=== PATIENT | male | born 1975 | race African-American/Black ===

== ENCOUNTER 2019-05-09 06:38 | Emergency (ER) | payer SELFPAY ==
[2019-05-09 07:27] LABS: Urine Blood 2+ (NEG); Urine Glucose NEGATIVE (NEG); Urine Protein 1+ (NEG); Urine Specific Gravity 1.025 (1.005-1.030)
[2019-05-09 07:34] LABS: Urine Bacteria <20 /HPF (NONE SEEN); Urine Culture Reflex Order REFLEXED; Urine Mucus HEAVY /HPF (NONE SEEN); Urine RBC <5 /HPF (NONE SEEN)
--- NOTE | 2019-05-09 08:00 | RAD REPORT ---
EXAM DESCRIPTION: CT - Stone Protocol - 05/09/2019 7:49 am CLINICAL HISTORY: Abdominal pain, right flank pain COMPARISON: None. TECHNIQUE: Axial 5 mm thick images were obtained without oral or IV contrast. The [id number]-bn-spos span s the entirety of the system including uppermost abdomen and lung bases. All CT scans are performed using dose optimization technique as appropriate and may include automated exposure control or mA/KV adjustment according to patient size. FINDINGS: No hydronephrosis is present and no obstructing ureteral calculi. Iliac artery calcificati ons are identified in phleboliths are present in the lower pelvis. No suspicious renal masses. Isoden se masses and pyelonephritis are not excluded on a stone protocol CT scan. No calculus in the contrac niya urinary bladder. No significant adrenal finding. Imaged portions of the liver, spleen and pancreas show no suspicious findings on non-contrast imaging . No gallbladder or biliary tree abnormality identified. Gallstones can be occult on CT imaging. No s uspicion for an active gallbladder process. No suspicious bowel findings. No direct or indirect evidence for appendicitis. No hernia, mass or bulky lymphadenopathy noted. Trace amount of free fluid in the dependent portion t he pelvis likely reactive. No free air or pneumatosis. No significant bony abnormality. IMPRESSION: No hydronephrosis, obstructing calculus or acute finding. Isodense masses and pyelonephritis are not excluded on stone protocol technique. No direct or indirect evidence for appendicitis or other acute GI process. Trace free fluid in the de pendent portion of the pelvis is likely reactive.
[2019-05-09 08:24] LABS: Absolute Lymphocytes (CBC) 1.6 K/uL (0.7-4.9); Basophils % 0.8 % (0-1.3); Eosinophils % 0.4 % (0-4.4); Hematocrit 50.2 % (39.6-49.0); Lymphocytes % 30.3 % (15.3-44.8); MPV 8.6 fL (7.6-11.3); Monocytes % 8.5 % (3.3-12.3); RBC Red Blood Cell Count 5.31 M/uL (4.33-5.43)
[2019-05-09 08:49] LABS: Blood Morphology Comment NOT SEEN (NOT SEEN); Platelet Estimate ADEQ; Urine White Blood Cell Casts OK
[2019-05-09 09:02] LABS: BUN Blood Urea Nitrogen 10 mg/dL (7-18); Bicarbonate 25 mmol/L (21-32); Glucose Level 91 mg/dL (74-106); Potassium 4.7 mmol/L (3.5-5.1); Sodium Level 134 mmol/L (136-145)
--- NOTE | 2019-05-09 09:31 | ER ---
Nurse's Notes [facility] Name: Benny Morris III Age: 43 yrs Sex: Male : 1975 Arrival Date: 05/09/2019 Time: 06:39 Bed 5 Private MD: Diagnosis: Abdominal and pelvic pain Presentation: 05/09 06:50 Presenting complaint: Patient states: Right flank pain that radiates to RLQ x 4 days. tl2 Denies any urinary symptoms. Reports N/V. Transition of care: patient was not received from another setting of care. Onset of symptoms was May 05, 2019. Risk Assessment: Do you want to hurt yourself or someone else? Patient reports no desire to harm self or others. Initial Sepsis Screen: Does the patient meet any 2 criteria? No. Patient's initial sepsis screen is negative. Does the patient have a suspected source of infection? No. Patient's initial sepsis screen is negative. Care prior to arrival: None. 06:50 Method Of Arrival: Ambulatory tl2 06:50 Acuity: JOSUÉ 3 tl2 Triage Assessment: 06:51 General: Appears in no apparent distress. uncomfortable, Behavior is calm, cooperative, tl2 appropriate for age. Pain: Complains of pain in right flank Pain radiates to right lower quadrant Pain currently is 10 out of 10 on a pain scale. Neuro: Level of Consciousness is awake, alert, obeys commands, Oriented to person, place, time, situation. Respiratory: Airway is patent Respiratory effort is even, unlabored, Respiratory pattern is regular, symmetrical. GI: Reports nausea, vomiting. : Denies burning with urination, inability to void, urinary frequency. Derm: Skin is pink, warm \T\ dry. Historical: - Allergies: 06:51 No Known Allergies; tl2 - Home Meds: 06:51 None [Active]; tl2 - PMHx: 06:51 None; tl2 - PSHx: 06:51 None; tl2 - Immunization history:: Adult Immunizations up to date. - Social history:: Smoking status: Patient uses tobacco products, cigars. - Ebola Screening: : No symptoms or risks identified at this time. Screenin:52 Abuse screen: Denies threats or abuse. Nutritional screening: No deficits noted. tl2 Tuberculosis screening: No symptoms or risk factors identified. Fall Risk None identified. Assessment: 07:20 General: Appears in no apparent distress. well groomed, well developed, well nourished, sg Behavior is calm, cooperative, appropriate for age. Pain: Complains of pain in right low back and right lower quadrant Quality of pain is described as aching. Neuro: No deficits noted. Cardiovascular: Capillary refill is brisk in bilateral fingers Patient's skin is warm and dry. Chest pain is denied. Respiratory: Airway is patent Respiratory effort is even, unlabored, Respiratory pattern is regular, symmetrical. GI: No signs and/or symptoms were reported involving the gastrointestinal system. : No signs and/or symptoms were reported regarding the genitourinary system. EENT: No signs and/or symptoms were reported regarding the EENT system. Derm: Skin is pink, warm \T\ dry. Musculoskeletal: No signs and/or symptoms reported regarding the musculoskeletal system. Vital Signs: 06:51 BP 123 / 85; Pulse 52; Resp 18; Temp 98.8(O); Pulse Ox 97% on R/A; Weight 64.2 kg; tl2 Height 6 ft. 0 in. (182.88 cm); Pain 10/10; 09:40 BP 122 / 80; Pulse 50; Resp 17; Pulse Ox 98% on R/A; sg 06:51 Body Mass Index 19.20 (64.20 kg, 182.88 cm) tl2 ED Course: 06:39 Patient arrived in ED. ds1 06:51 Triage completed. tl2 06:51 Arm band placed on right wrist. tl2 06:52 Patient has correct armband on for positive identification. Bed in low position. Call tl2 light in reach. Side rails up X 1. Adult w/ patient. 06:59 Shadi Shook PA is PHCP. jr8 06:59 Flako Johnson MD is Attending Physician. jr8 08:11 CT Stone Protocol In Process Unspecified. EDMS 08:18 Missed attempt(s): 22 gauge in left antecubital area. Bleeding controlled, band aid ss applied, catheter tip intact. 08:18 Initial lab(s) drawn, by me, sent to lab. ss 08:21 Kade Pierre, RN is Primary Nurse. sg 09:42 No provider procedures requiring assistance completed. Patient did not have IV access sg during this emergency room visit. Administered Medications: No medications were administered Outcome: 09:30 Discharge ordered by MD. barnes 09:42 Discharged to home ambulatory, with family. leola 09:42 Condition: good 09:42 Discharge instructions given to patient, family, Instructed on discharge instructions, follow up and referral plans. medication usage, safety practices, Demonstrated understanding of instructions, follow-up care, medications, Prescriptions given X 2. 09:48 Patient left the ED. sg Signatures: Dispatcher [employer] EDMS Kade Pierre RN RN Rochelle Shearer ds1 Charlotte Parnell RN RN Shadi Shook PA PA jr8 Knox, Taylor RN RN tl2
--- NOTE | 2019-05-09 09:31 | EDPHYS ---
Physician Documentation [facility] Name: Benny Morris III Age: 43 yrs Sex: Male : 1975 Arrival Date: 05/09/2019 Time: 06:39 Bed 5 Private MD: ED Physician Flako Johnson HPI: 05/09 09:14 This 43 yrs old Black Male presents to ER via Ambulatory with complaints of Kidney Pain.jr8 09:14 The rash is located on the right flank. The rash can be described as papular. Onset: jr8 The symptoms/episode began/occurred 2 day(s) ago. Associated signs and symptoms: Pertinent positives: burning sensation, Pain Pertinent negatives: fever. Severity of symptoms: At their worst the symptoms were moderate in the emergency department the symptoms are unchanged. The patient complains of pain in the right flank. The pain radiates to the right lower quadrant. Onset: The symptoms/episode began/occurred acutely, 4 day(s) ago. Modifying factors: The symptoms are alleviated by nothing. the symptoms are aggravated by movement, palpation/percussion. Associated signs and symptoms: Pertinent negatives: diarrhea, dysuria, fever, urinary frequency, hematuria, nausea, vomiting. The patient has not experienced similar symptoms in the past. The patient has not recently seen a physician. 09:14 right flank pain x 4-5 days with radiation around to RLQ described as "burning". also jr8 reports localized rash to right flank x 2 days. Denies urinary s/s or fever.. Historical: - Allergies: 06:51 No Known Allergies; tl2 - Home Meds: 06:51 None [Active]; tl2 - PMHx: 06:51 None; tl2 - PSHx: 06:51 None; tl2 - Immunization history:: Adult Immunizations up to date. - Social history:: Smoking status: Patient uses tobacco products, cigars. - Ebola Screening: : No symptoms or risks identified at this time. ROS: 09:14 Constitutional: Negative for fever, chills, and weight loss, Eyes: Negative for injury, jr8 pain, redness, and discharge, ENT: Negative for injury, pain, and discharge, Neck: Negative for injury, pain, and swelling, Cardiovascular: Negative for chest pain, palpitations, and edema, Respiratory: Negative for shortness of breath, cough, wheezing, and pleuritic chest pain, Abdomen/GI: Negative for abdominal pain, nausea, vomiting, diarrhea, and constipation, MS/Extremity: Negative for injury and deformity, Neuro: Negative for headache, weakness, numbness, tingling, and seizure. 09:14 Back: Positive for flank pain, on the right, radiated pain, Negative for injury or acute deformity, decreased range of motion. 09:14 Skin: Positive for rash. Exam: 09:14 Constitutional: This is a well developed, well nourished patient who is awake, alert, jr8 and in no acute distress. Head/Face: Normocephalic, atraumatic. Eyes: Pupils equal round and reactive to light, extra-ocular motions intact. Lids and lashes normal. Conjunctiva and sclera are non-icteric and not injected. Cornea within normal limits. Periorbital areas with no swelling, redness, or edema. Neck: Trachea midline, no thyromegaly or masses palpated, and no cervical lymphadenopathy. Supple, full range of motion without nuchal rigidity, or vertebral point tenderness. No Meningismus. Cardiovascular: Regular rate and rhythm with a normal S1 and S2. No gallops, murmurs, or rubs. Normal PMI, no JVD. No pulse deficits. Respiratory: Lungs have equal breath sounds bilaterally, clear to auscultation and percussion. No rales, rhonchi or wheezes noted. No increased work of breathing, no retractions or nasal flaring. MS/ Extremity: Pulses equal, no cyanosis. Neurovascular intact. Full, normal range of motion. Neuro: Awake and alert, GCS 15, oriented to person, place, time, and situation. Cranial nerves II-XII grossly intact. Motor strength 5/5 in all extremities. Sensory grossly intact. Cerebellar exam normal. Normal gait. 09:14 Abdomen/GI: Inspection: abdomen appears normal. 09:14 Back: pain, of the right low back and right side even to light touch, ROM is normal, CVA tenderness, is noted on the right, vertebral tenderness, is not appreciated. 09:14 Skin: rash a mild rash is noted, rash can be described as papular, on the right low back. Vital Signs: 06:51 BP 123 / 85; Pulse 52; Resp 18; Temp 98.8(O); Pulse Ox 97% on R/A; Weight 64.2 kg; tl2 Height 6 ft. 0 in. (182.88 cm); Pain 10/10; 09:40 BP 122 / 80; Pulse 50; Resp 17; Pulse Ox 98% on R/A; sg 06:51 Body Mass Index 19.20 (64.20 kg, 182.88 cm) tl2 MDM: 07:08 Patient medically screened. [facility] 09:14 Differential diagnosis: varicella, shingles nephrolithiasis, pyelonephritis, UTI. Data jr8 reviewed: vital signs, nurses notes, lab test result(s), radiologic studies, CT scan, and as a result, I will discharge patient. Data interpreted: Pulse oximetry: on room air is 99 %. Interpretation: normal. Counseling: I had a detailed discussion with the patient and/or guardian regarding: the historical points, exam findings, and any diagnostic results supporting the discharge/admit diagnosis, lab results, radiology results, the need for outpatient follow up, a family practitioner. 05/09 07:20 Order name: Urine Microscopic Only; Complete Time: 07:43 [facility] 05/09 07:21 Order name: CBC with Diff; Complete Time: 08:52 [facility] 05/09 07:21 Order name: Basic Metabolic Panel; Complete Time: 09:06 [facility] 05/09 07:21 Order name: Urine Dipstick--Ancillary (enter results); Complete Time: 07:28 bd 05/09 07:36 Order name: Urine Culture [facility] 05/09 08:30 Order name: CBC Smear Scan; Complete Time: 08:52 [facility] 05/09 07:20 Order name: Urine Dipstick-Ancillary (obtain specimen); Complete Time: 08:18 [facility] 05/09 07:21 Order name: CT Stone Protocol; Complete Time: 08:49 [facility] Administered Medications: No medications were administered Disposition: 22:15 Co-signature as Attending Physician, Flako Johnson MD Available for consultation at ps1 all times. . Disposition: 05/09/19 09:30 Discharged to Home. Impression: Abdominal and pelvic pain. - Condition is Stable. - Discharge Instructions: Abdominal Pain, Adult. - Prescriptions for Tylenol- Codeine #3 300-30 mg Oral Tablet - take 2 tablets by ORAL route every 6 hours As needed; 12 tablet. Acyclovir 800 mg Oral Tablet - take 1 tablet by ORAL route 5 times per day for 7 days; 35 tablet. - Work release form, Family Work Release, Medication Reconciliation Form, Thank You Letter, Antibiotic Education, Prescription Opioid Use form. - Follow up: Private Physician; When: 2 - 3 days; Reason: Recheck today's complaints, Continuance of care, Re-evaluation by your physician. - Problem is new. - Symptoms have improved. Signatures: Dispatcher [employer] EDMS Kade Pierre RN RN sg Shadi Shook PA PA jr8 Rhina Tello RN RN tl2 Flako Johnson MD MD ps1 Corrections: (The following items were deleted from the chart) 09:37 07:21 IV Saline Lock ordered. jr8 09:48 09:30 05/09/2019 09:30 Discharged to Home. Impression: Abdominal and pelvic pain. sg Condition is Stable. Forms are Medication Reconciliation Form, Thank You Letter, Antibiotic Education, Prescription Opioid Use. Follow up: Private Physician; When: 2 - 3 days; Reason: Recheck today's complaints, Continuance of care, Re-evaluation by your physician. Problem is new. Symptoms have improved. jr8
== END 2019-05-09 09:48 | disposition home or self-care (01) ==
LOC: ER 06:38
DX: R10.2 Pelvic and perineal pain (principal); R21 Rash and other nonspecific skin eruption; Z72.0 Tobacco use
CPT/HCPCS: 36415; 74176; 76377; 80048; 81003; 81015; 85025; 87086; 87088; 99283